=== PATIENT | male | born 1990 | race African-American/Black ===

== ENCOUNTER 2023-05-28 02:29 | Inpatient (IN) | payer OTHER ==
[~2023-05-28] VITALS: Ht 180.3 cm; Wt 86.0 kg
[2023-05-28] MEDS ORDERED: OLAN5TAB52 PO (02:46)
[2023-05-28 02:48] LABS: BASOPHILS % (AUTO) 0.3 % (0.0-2.0); EOSINOPHILS % (AUTO) 0.2 % (1.0-6.0); HEMATOCRIT 40.6 % (41-53); HEMOGLOBIN 13.3 g/dL (13.5-17.5); LYMPHOCYTES # (AUTO) 1.6 K/uL (1.0-4.8); LYMPHOCYTES % (AUTO) 27.2 % (22.0-44.0); MEAN CORPUSCULAR HEMOGLOBIN 26.9 pg (26.0-34.0); MEAN CORPUSCULAR HGB CONC 32.8 G/dL (31.0-37.0); MEAN CORPUSCULAR VOLUME 82 fL (80-100); MONOCYTES # (AUTO) 0.6 K/uL (0.1-1.0); MONOCYTES % (AUTO) 10.6 % (2.0-9.0); NEUTROPHILS # (AUTO) 3.6 K/uL (1.8-7.7); NEUTROPHILS % (AUTO) 61.7 % (40.0-70.0); PLATELET COUNT (AUTO) 196 K/uL (150-450); RED BLOOD CELL COUNT(AUTO) 4.94 MIL/uL (4.50-5.90); RED CELL DISTRIBUTION WIDTH 14.7 % (11.5-14.5)
[2023-05-28] MEDS ORDERED: ACTIVATED CHARCOAL 50 GM/240 ML SUSPENSION ONE (02:51)
[2023-05-28 02:57] LABS: ANION GAP 12 mmol/L (8-16); CALCIUM, TOTAL 9.6 mg/dL (8.8-10.5); CARBON DIOXIDE 27 mmol/L (22-29); CHLORIDE 103 mmol/L (98-107); CREATININE 1.39 mg/dL (0.60-1.30); GLOMERULAR FILTR. RATE CALC > 60 mL/min (>60); GLUCOSE,RANDOM 119 mg/dL (70-110); POTASSIUM 3.8 mmol/L (3.5-5.1); SODIUM SERUM 142 mmol/L (136-145)
[2023-05-28] MEDS ORDERED: ACTIVATED CHARCOAL 50 GM/240 ML SUSPENSION PO ONE (03:00)
[2023-05-28 03:13] LABS: ALANINE AMINOTRANSFERASE 32 U/L (12-78); ALBUMIN 4.1 g/dL (3.4-5.0); ALKALINE PHOSPHATASE 54 U/L (46-116); ASPARTATE AMINOTRANSFERASE 38 U/L (15-37); BILIRUBIN,TOTAL 1.6 mg/dL (0.1-1.0); TOTAL PROTEIN, SERUM 7.6 g/dL (6.4-8.2)
[2023-05-28 03:18] LABS: COVID AG,FIA SOURCE NASOPHARYNGEAL
[2023-05-28 03:30] LABS: ACETAMINOPHEN < 2 mcg/mL (10-30)
[2023-05-28 03:41] LABS: SALICYLATE < 2.8 mg/dL (2.8-20.0)
[2023-05-28 07:29] LABS: AMPHET/METH SCREEN,URINE NEGATIVE (NEGATIVE); BARBITURATE SCREEN, URINE NEGATIVE (NEGATIVE); BENZODIAZEPINES SCREEN,URINE NEGATIVE (NEGATIVE); CANNABINOID SCREEN,URINE NEGATIVE (NEGATIVE); COCAINE SCREEN,URINE NEGATIVE (NEGATIVE); METHADONE SCREEN, URINE NEGATIVE (NEGATIVE); OPIATE SCREEN,URINE NEGATIVE (NEGATIVE); PHENCYCLIDINE SCREEN,URINE NEGATIVE (NEGATIVE)
[2023-05-28] MEDS ORDERED: LORazepam 2 MG TABLET PO PRN (08:45)
[2023-05-28] MEDS ORDERED: ZOLPIDEM TARTRATE 10 MG TABLET PO PRN (08:45)
[2023-05-28] MEDS ORDERED: QUEtiapine FUMARATE 100 MG TABLET PO PRN (08:45)
[2023-05-28 15:18] VITALS: BP 160/95; PULSE 78; RESP 18; TEMP 97.4; O2SAT 98
[2023-05-28 18:44] VITALS: BP 135/82; PULSE 76; RESP 18; TEMP 97.8; O2SAT 98
[2023-05-28 20:12] VITALS: BP 106/86; PULSE 74; RESP 18; TEMP 97.8; O2SAT 100
[2023-05-29 03:39] VITALS: RESP 17
[2023-05-29 08:31] VITALS: BP 149/82; PULSE 110; RESP 18; TEMP 97.9; O2SAT 98
[2023-05-29] MEDS: OLANZapine 5 MG TABLET PO SCH ×2 (11:18→20:21)
[2023-05-29 12:23] VITALS: PULSE 96
[2023-05-29 20:10] VITALS: BP 132/75; PULSE 67; RESP 18; TEMP 98.2; O2SAT 100
[2023-05-30] MEDS: OLANZapine 5 MG TABLET PO SCH ×2 (08:15→20:34)
[2023-05-30 08:49] VITALS: BP 133/81; PULSE 71; RESP 18; TEMP 97.1; O2SAT 98
[2023-05-30 20:38] VITALS: BP 132/82; PULSE 67; RESP 19; TEMP 97.1; O2SAT 100
[2023-05-31 08:54] VITALS: BP 145/80; PULSE 81; RESP 17; TEMP 98; O2SAT 100
[2023-05-31] MEDS: OLANZapine 5 MG TABLET PO SCH (09:27)
[2023-05-31] MEDS ORDERED: OLAN5TAB52 PO (09:39)
== END 2023-05-31 13:47 | disposition home or self-care (01) | DRG 885 ==
LOC: EMS 02:30 → B2S 12:38
PROVIDERS: ADMIT Psychiatry & Neurology Psychiatry; ATTEND Psychiatry & Neurology Psychiatry
DX: F25.0 Schizoaffective disorder, bipolar type (principal); N17.9 Acute kidney failure, unspecified; R45.851 Suicidal ideations; F41.9 Anxiety disorder, unspecified; Z20.822 Contact with and (suspected) exposure to COVID-19; T50.992A Poisoning by other drugs, medicaments and biological substances, intentional self-harm, initial encounter; G47.00 Insomnia, unspecified; D64.9 Anemia, unspecified; Z79.899 Other long term (current) drug therapy; Y92.89 Other specified places as the place of occurrence of the external cause
CPT/HCPCS: 70450; 80053; 80307; 84484; 85025; 93005; 99285; G0480; G0481